=== PATIENT | female | born 1955 | race Two or more races ===

== ENCOUNTER 2016-10-27 17:14 | Emergency (ER) | payer MEDICARE, MEDICAID ==
[2016-10-27] MEDS ORDERED: IOPAMIDOL 370 (76%) 100 ML VIAL IV ONE (17:15)
[2016-10-27 18:20] LABS: URINE BILIRUBIN NEGATIVE (NEGATIVE); URINE BLOOD NEGATIVE (NEGATIVE); URINE GLUCOSE (UA) NEGATIVE (NEGATIVE); URINE LEUKOCYTE ESTERASE TRACE (NEGATIVE); URINE NITRITE NEGATIVE (NEGATIVE); URINE PROTEIN 1+ (NEGATIVE); URINE UROBILINOGEN NORMAL (0-1 mg/dl)
[2016-10-27 18:21] LABS: ABSOLUTE NEUTROPHIL COUNT 5.3 K/mm3 (1.8-7.7); BASO % 0.4 % (0.2-1.0); EOS # 0.1 (0.0-0.5); EOS % 0.8 % (0.9-2.9); HEMOGLOBIN 12.8 gm/l (12.0-16.0); IMM NEUT # 0.2 K/mm3 (0-0.2); IMM NEUT% 2.5 % (0-1); LYMPH # 1.1 (1.0-4.8); LYMPH % 13.7 % (15-45); MEAN CELL VOLUME 93.2 fl (81.0-99.0); MEAN CORPUSCULAR HEMOGLOBIN 29.8 pg (27.0-31.0); MEAN PLATELET VOLUME 11.2 fl (7.4-10.4); MONO % 13.3 % (4-12); NEUT % 69.3 % (43-75); PLATELET COUNT 207 K/mm3 (130-400); RED CELL DISTRIBUTION WIDTH 13.9 % (11.5-14.5); URINE APPEARANCE CLEAR; URINE COLOR AMBER
[2016-10-27 18:28] LABS: ALB/GLOB RATIO 1.4 (>1.0); ALBUMIN 4.5 gm/dL (3.5-5.7); CALCIUM 9.7 mg/dL (8.6-10.3); MAGNESIUM 1.8 mg/dL (1.9-2.7)
[2016-10-27] MEDS ORDERED: ONDANSETRON 4 MG/2ML 2 ML VIAL ONE (18:37)
[2016-10-27] MEDS ORDERED: MORPHINE SULFATE 4 MG/ML SYRINGE ONE (18:37)
[2016-10-27 18:42] LABS: URINE RBC 0-1 /hpf
[2016-10-27 18:43] LABS: URINE BACTERIA 3+
--- NOTE | 2016-10-27 19:03 | CT ---
Exam Type: ABD/PELVIS W/ CON Date and Time: 10/27/2016 5:43 PM Clinical information: Right upper quadrant pain. Comparison: None Procedure: Imaging device: [employer] Aquilion [address] scanner 1 mm axial images were obtained through the abdomen and pelvis. Stacked reconstructed 3, 4 and 5 mm images were photographed in the axial coronal and sagittal planes. No oral contrast was utilized for this examination. 100 ml of Isovue-370 was injected intravenously. Exam: with intravenous contrast. FINDINGS: Lung bases: There is linear atelectasis or scarring noted within the left pulmonary base. No effusion or pneumothorax is seen. Liver: The liver appears to be of diffusely decreased attenuation when compared to the spleen. No focal mass or evidence suggesting intrahepatic biliary dilatation is observed. Spleen: The spleen is homogeneous and does not appear to be enlarged. Gallbladder: Mildly distended. No adjacent inflammatory stranding is observed. Pancreas: Normal without enlargement or evidence of adjacent inflammatory changes. Adrenal glands: A 1.6 cm low-attenuation mass is seen involving the left adrenal gland with an attenuation value of -84 Hounsfield units consistent with a myelolipoma. Abdominal aorta: The aorta is of normal caliber and appears to be without significant atherosclerotic disease. Kidneys: The kidneys appear to be symmetric in size with no perinephric inflammatory changes are identified. No current findings of hydronephrosis are seen. Bowel structures: A few distal colonic diverticula are identified without adjacent inflammatory stranding. No evidence of obstruction is visualized. Appendix: The appendix is well-visualized and appears to be of normal caliber. No periappendiceal inflammatory changes or CT findings of appendicitis are currently observed. Bladder: Partially decompressed. There is mild circumferential thickening of the bladder wall observed. Hernia: A fat filled umbilical hernia is identified. Adenopathy: No significant enlarged adenopathy is visualized. Osseous structures: Prior pedicle screw fixation of the lower lumbar spine is noted. There are thoracic and lumbar degenerative changes seen at the remaining levels. Pelvic structures: No discrete pelvic abnormalities are visualized in this examination. IMPRESSION: 1. Findings most commonly associated with diffuse fatty infiltration of the liver. 2. Left basilar atelectasis or scarring. 3. A 1.6 cm left adrenal myelolipoma. 4. Mild prominence of the gallbladder without adjacent inflammatory stranding. 5. A normal appearance of the appendix without CT evidence of appendicitis. 6. Distal colonic diverticulosis without evidence to suggest diverticulitis. 7. A fat filled umbilical hernia. 8. Prior hardware fixation of the lower lumbar spine. 9. Partial decompression of the bladder with questionable thickening of the bladder wall which may reflect an underlying component of cystitis.
--- NOTE | 2016-10-27 19:33 | US ---
ABDOMINAL-LIMITED History: Upper quadrant pain. Nausea. Findings: Gallbladder: The gallbladder is mildly distended. No discrete gallstones are visualized. There is no wall thickening or pericholecystic fluid is identified. A negative sonographic Andino sign was elicited during the course of the exam. Biliary tree: The common hepatic duct measures 2.9 millimeters adjacent to the hepatic artery. Liver: the visualized liver is homogeneous. No masses or evidence of intra-hepatic biliary dilatation are seen. Impression: 1. Mild distention of the gallbladder. No evidence of cholelithiasis or biliary dilatation is observed with a reported negative sonographic Andino sign.
[2016-10-27] MEDS ORDERED: CEFTRIAXONE 1 GRAM DUPLEX 50 ML IV ONE (19:38)
== END 2016-10-27 20:18 | disposition home or self-care (01) ==
LOC: ED 17:14
DX: N39.0 Urinary tract infection, site not specified (principal); R10.11 Right upper quadrant pain; K76.0 Fatty (change of) liver, not elsewhere classified; R11.2 Nausea with vomiting, unspecified